=== PATIENT | male | born 1960 | race Caucasian/White ===

== ENCOUNTER 2018-07-19 04:00 | Emergency (ER) | payer OTHER ==
[2018-07-19] MEDS: HYDROCODONE/APAP (10/325) TAB PO (04:46)
[2018-07-19] MEDS: KETOROLAC 30 MG INJ IM (04:47)
== END 2018-07-19 06:13 | disposition home or self-care (01) ==
LOC: FTE 06:13
DX: S80.12XA Contusion of left lower leg, initial encounter (principal); I10 Essential (primary) hypertension; X58.XXXA Exposure to other specified factors, initial encounter; Y92.89 Other specified places as the place of occurrence of the external cause; Z79.82 Long term (current) use of aspirin
CPT/HCPCS: 73590; 96372; 99284-25